=== PATIENT | male | born 1990 | race African-American/Black ===

== ENCOUNTER 2021-05-12 14:24 | Emergency (ER) | payer OTHER ==
[~2021-05-12] VITALS: Ht 185.4 cm; Wt 93.0 kg
[2021-05-12 15:15] VITALS: BP 145/91
== END 2021-05-12 15:15 | disposition home or self-care (01) ==
LOC: M.ERS 14:24
DX: R43.8 Other disturbances of smell and taste (principal); Z20.822 Contact with and (suspected) exposure to COVID-19